=== PATIENT | female | born 1990 | race Caucasian/White ===

== ENCOUNTER 2025-05-14 21:57 | Emergency (ER) | payer OTHER ==
[2025-05-14 22:49] LABS: Pregnancy Test - Urine (BHCG) Negative (Negative); Pregu Control Background? CLEAR/WHITE (CLR/WHITE); Pregu Control Bar Appear? YES (CONTROL BAR)
[2025-05-14 22:50] LABS: Glucose, Urine (Dipstick) Normal (Negative); Leukocyte Negative (Negative); Protein, Urine (Dipstick) Negative (Neg-Trace); Specific Gravity, Urine 1.020 (1.005-1.030)
[2025-05-14 22:57] LABS: Bacteria/HPF None Seen HPF (None Seen); CAUTI Indications for Culture Pelvic or flank pain; RBC/HPF None Seen HPF (0-3); Urine Culture Reflex No No; WBC/HPF None Seen HPF (0-3)
[2025-05-15 01:42] LABS: Syphilis Antibody Index 19.11 S/CO (<1.00 Non-Reactive)
[2025-05-15 01:50] LABS: Syphilis Titer 1:1 Titer (Nonreactive)
[2025-05-16 10:50] LABS: Chlam.trachomatis by PCR,Urine Not Detected (NotDetected); GC N.gonorrhoeae PCR,UrineVOID Not Detected (NotDetected)
[2025-05-16 10:50] LABS: Chlamydia by PCR, Vaginal Swab Not Detected (NotDetected); GC by PCR, Vaginal Swab Not Detected (NotDetected)
== END 2025-05-15 02:32 | disposition home or self-care (01) ==
LOC: CSHERS 21:57
DX: N76.0 Acute vaginitis (principal); B96.89 Other specified bacterial agents as the cause of diseases classified elsewhere; I10 Essential (primary) hypertension; F17.210 Nicotine dependence, cigarettes, uncomplicated
CPT/HCPCS: 36415; 81001; 81025; 86593; 86780; 87480; 87491; 87510; 87591; 87660